=== PATIENT | male | born 1950 | race Caucasian/White ===

== ENCOUNTER 2016-08-20 06:27 | Observation (INO) | payer OTHER ==
[2016-08-13 12:15] LABS: HEMATOCRIT 43.5 % (40.0-51.0)
[2016-08-13 12:30] LABS: CHLORIDE, SERUM 104 MMOL/L (96-112); CO2 (CARBON DIOXIDE) 28 MMOL/L (24-34); CREATININE 0.89 MG/DL (0.70-1.30); GFR AFRICAN AMERICAN 102 ML/MIN (>=60); GFR NON AFRICAN AMERICAN 88 ML/MIN (>=60); POTASSIUM, SERUM 3.9 MMOL/L (3.5-5.3); SODIUM, SERUM 140 MMOL/L (135-148)
[2016-08-13 12:31] LABS: BUN (BLOOD UREA NITROGEN) 13 MG/DL (6-23); GLUCOSE, SERUM 99 MG/DL (60-99)
--- NOTE | ~2016-08-20 | PREOPHP ---
PreOp History and Physical [facility] [address] [place]. [address] NAME: MANOJ BAKER : 46 STATUS : ADM IN PAT#: [id number] AGE: 66 ADM/REG DATE : 08/20/16 MR#: [id number] REPORT SERV DATE: 08/20/16 DICTATED BY: EJ LOPEZ DATE: 08/20/16 REPORT STATUS : Draft TRANSCRIBED BY: MODL DATE: 08/20/16 CHIEF COMPLAINT: 1. Neck pain and shoulder and arm pain. 2. Gait disturbance. HISTORY OF PRESENT ILLNESS: A 66-year-old male who is still working on a daily basis with neck pain and shoulder and arm pain. He has developed significant weakness in his upper extremities. He also has some gait disturbance. The patient has had a previous cervical fusion [place] [address] Nithin Comer. The patient has developed numbness and tingling in both arms and weakness in both arms and left leg. There is pain that is associated with bowel and bladder function, but he has not lost control of bowel and bladder function. Plain x- rays reveal previous fusion of C4-5 and C5-6. He has cervical spondylosis mostly of C3-4 and C6-7. MRI shows severe cord compression at C3-4 due to a combination of some disk herniation as well as some calcification of the posterior longitudinal ligament. There is also foraminal impingement. At C6-7, there is again moderate cord impingement, but not as severe as C3-4 where the cord is just a ribbon, and there is myelomalacia within the cord at C3-4 as well as behind the top bodies of C5 and C6. The patient on exam is found to have significant weakness and is admitted for anterior cervical diskectomy at C3-4 and C6-7. A partial corpectomy of the inferior part of C3 will be required in order to safely get above the area of the disk herniation and remove it. The insurance company has indicated that they will not pay for the partial corpectomy and they do not think it is indicated, but this is absolutely incorrect and whether they pay for or not, corpectomy is necessary in order to safely perform the surgery. Finally, the patient will have interbody fusion with allograft and will have instrumentation at C3-4 and C6-7. This will be done through two separate individual incisions transverse at C3-4 and at C6-7. Prior to surgery, I have gone over in great detail of the risks, benefits, alternatives, and expectations. Consent form is signed. PAST MEDICAL HISTORY: Includes hypertension and DVTs. PAST SURGICAL HISTORY: Colonoscopy, anterior cervical diskectomy and fusion, and a knee arthroscopy. CURRENT MEDICATIONS: Include amlodipine, calcium, folic acid, hydrocodone, methotrexate, and Orencia. ALLERGIES: NONE. SOCIAL HISTORY: He is . He is still working in maintenance. Has been a smoker half a pack per day and never used alcohol. FAMILY HISTORY: Noncontributory. REVIEW OF SYSTEMS: He currently denies any chest pain, pressure, or shortness of breath. He has had no alteration of bowel and bladder function. PreOp History and Physical [place] [id number] [facility] [place]. [address] NAME: MANOJ BAKER : 46 STATUS : ADM [facility]#: [id number] AGE: 66 ADM/REG DATE : 08/20/16 MR#: [id number] REPORT SERV DATE: 08/20/16 DICTATED BY: EJ LOPEZ DATE: 08/20/16 REPORT STATUS : Draft TRANSCRIBED BY: JUAN DATE: 08/20/16 PHYSICAL EXAMINATION: GENERAL: He is 5 feet and 11 inches and 148 pounds. Alert, cooperative, well oriented. He ambulates only with assistance. His gait is certainly unstable. HEENT: Normocephalic. Pupils are equal and reactive to light. Extraocular muscles are intact. Oral exam is grossly normal. He has some dental implants that were in place. NECK: Exam reveals increased comfort with his neck flexed forward, and he can flex to 30 degrees or so. He does have pain in the neck and shoulders with extension. The pain with extension in his neck is from the top of the neck all the way to the top of the shoulders and across. When he extends his neck, he also has a significant feeling of weakness in his upper extremities. He has a positive Lhermitte's finding. Upper strength in his deltoid, biceps, triceps, wrist extensor, wrist flexors, and intrinsics is 4-/5. He has hyperreflexia in the lower extremities. He has upgoing toes with some ankle clonus. Loren sign is positive. The patient's brachioradialis and triceps reflexes 0/4 bilateral. There is some decreased stocking-glove sensation in his forearms and hands bilateral. LUNGS: Clear to auscultation. HEART: Rate is regular and rhythmic. ABDOMEN: Soft with good bowel sounds. No peritoneal signs noted. ASSESSMENT AND RECOMMENDATIONS: As listed above. /MODL Ej Lopez D.O. / [id number] CC: Adin Sandoval MD
--- NOTE | ~2016-08-20 | OP ---
Record Of Operation [facility] [address] [place]. [address] NAME: MANOJ BAKER : 46 STATUS : ADM IN PAT#: [id number] AGE: 66 ADM/REG DATE : 08/20/16 MR#: [id number] REPORT SERV DATE: 08/21/16 DICTATED BY: EJ LOPEZ DATE: 08/21/16 REPORT STATUS : Draft TRANSCRIBED BY: MODL DATE: 08/21/16 DATE OF PROCEDURE: 08/20/2016 PREOPERATIVE DIAGNOSES: 1. 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 2. Cervical spondylosis spinal stenosis, C3-4 and C6-7. POSTOPERATIVE DIAGNOSES: 1. 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 2. Cervical spondylosis spinal stenosis, C3-4 and C6-7. PROCEDURES: 1. Microscopic and navigation-assisted surgery. 2. Anterior cervical diskectomy, foraminotomy, C3-4. 3. Anterior cervical diskectomy, foraminotomy, C6-7. 4. Anterior interbody fusion with cortical cancellous allograft, C3-4 and C6-7. 5. Anterior segmental spinal instrumentation with Venture plating, C3-4 and C6-7. SURGEON: Ej Lopez D.O. SPRING TACKER: Roberto Harris. ANESTHESIA: General. BLOOD LOSS: 25 mL. INDICATIONS FOR SURGERY: Indication for surgery and risks were explained. They are listed in last office note as well as the history and physical. See that for detail. PROCEDURE IN DETAIL: Antibiotic prophylaxis was given. Neurophysiology monitoring leads inserted. The patient was brought to the operative suite. General anesthetic including endotracheal intubation was administered. The patient was placed in a supine position on fluoroscopic Magdiel spine frame. A small bolster was behind this shoulders. His neck was in neutral alignment. Preoperatively, we had the patient flex and extend his neck to demonstrate how much he could move his neck without causing any Lhermitte's phenomenon. We were careful to intubate with a GlideScope and not extend his neck. After intubation, the scalp was painted with Betadine solution. Guillen 3-point fixation attached to the skull using 60 pounds torque in standard position. The Guillen was attached to the Magdiel bed and the Screenie navigational registration frame was attached to the [place]. Because of the complexity of surgery, the need to identify correct level of surgery intraoperatively as well as desire to carry out the safest and most precise dissection, and also because I had to carry out some corpectomy in the inferior part of the body of C3, I felt that intraoperative navigation was mandatory. Isolation drapes were placed. The neck was scrubbed with Hibiclens solution. DuraPrep was painted. Sterile drapes applied. Record Of Operation [facility] [address] [place]. [address] NAME: MANOJ BAKER : 46 STATUS : ADM IN PAT#: [id number] AGE: 66 ADM/REG DATE : 08/20/16 MR#: [id number] REPORT SERV DATE: 08/21/16 DICTATED BY: EJ LOPEZ DATE: 08/21/16 REPORT STATUS : Draft TRANSCRIBED BY: JUAN DATE: 08/21/[address] scan with O-arm obtained, CT information used to register the navigational system. With navigational assistance, I identified C3-4 and C6-7. I started initially at C3-4. A transverse 2 cm Jackson-Olguin skin incision was carried out. The platysma was incised in line with the skin incision. Superficial layer of the deep cervical fascia was released along the anterior border of the sternocleidomastoid. Blunt dissection was carried out to the retropharyngeal space where the longus coli muscles were subperiosteally elevated. I re identified the correct level of surgery intraoperatively once the retractors were placed. Dunbar distractor pins were placed in the bodies of C3 and 4. With the sterilely draped microscope, I continued to map out the left and right boundary of the uncinate process with navigational assistance. I then incised the anterior longitudinal ligament. The anterior diskectomy was carried out with curettes and rongeurs. As I moved from anterior to posterior, I widened the interbody space. Because we could see on the navigational images, a large spondylotic bar posteriorly, I then carried out a partial corpectomy of the inferior body of C3, so that I was able to enter the epidural space just slightly above the spondylitic bar. I used a combination of a cutting bur, then a 3 mm and 2 mm raúl bur to carry out a corpectomy removing 10% of the inferior body of C3. I then carefully peeled the posterior longitudinal ligament and removed the spondylitic bar along with large soft disk herniation that was causing so much cord compression. I completely decompressed the cord. Foraminotomies were widened with a 2 mm raúl bur and a 1 mm Kerrison rongeur. The width, depth, and height of the disk space was measured and a wedge-shaped cortical cancellous allograft was placed in the midline. Traction was released locking the graft in good position. The wounds were irrigated. I then placed a 4-hole Venture plate over the mid body of C3 and 4, properly aligned it with navigational assistance. The four holes were drilled. The locking screws were inserted providing rigid stability. We moved distally to C6-7. Once again with navigational assistance, we identified the C6-7 level. We carried out a second transverse 2 cm skin incision. The platysma was incised in line with the skin incision and again we made the same approach to a C6-7 retropharyngeal space. Once again, Dunbar distractor pins were placed in the bodies of C6 and 7, and we carried out the same identical anterior diskectomy, wide foraminotomy, interbody fusion with allograft, and finally a placement of the Venture plate over the C6-7 level. The retractors were then removed. Both the AP and lateral x-rays taken intraoperatively showing excellent position of all implants and good baptist of disk height at the both levels. The platysmas were then closed with 3-0 Vicryl suture. Subcutaneous tissue closed with 3-0 Vicryl suture and subcuticular 4-0 PDS used for skin closure. Sterile dressings were applied. The patient awakened, extubated, and taken to recovery room in satisfactory condition having tolerated the procedure well. Sponge, needle, and instrument counts were correct. No intraoperative complications noted. Record Of Operation [facility] [address] [place]. [address] NAME: MANOJ BAKER : 46 STATUS : ADM IN PAT#: [id number] AGE: 66 ADM/REG DATE : 08/20/16 MR#: [id number] REPORT SERV DATE: 08/21/16 DICTATED BY: EJ LOPEZ DATE: 08/21/16 REPORT STATUS : Draft TRANSCRIBED BY: JUAN DATE: 08/21/16 MATTY/MODL Ej Lopez D.O. / [id number] CC: Adin Sandoval MD
[~2016-08-20 06:27] MED LIST: COREG6 PO; ENDOCET1 TA3 PO; FERROUS SULF325 M1 PO; FOLIC PO; HUMIRA PEN SC; LORTAB10 PO; LOTREL1 CA2 PO; LOTREL1 CA3 PO; LYRICA50 PO; METHOTREXATE25 MG/ML SC; NEUR100 PO; NORCO1 TAB PO; ORENCIA250 MG SQ; OS500+D PO; ULTRAM50 PO
[2016-08-21] MEDS ORDERED: NORCO1 TA2 PO (10:38)
[2016-08-21] MEDS ORDERED: METHOC500B PO (10:39)
== END 2016-08-21 12:52 | disposition home or self-care (01) ==
LOC: SDC 06:27 → 3SO 13:36
PROVIDERS: Orthopaedic Surgery Orthopaedic Surgery of the Spine
PROC: 0RB30ZZ Excision of Cervical Vertebral Disc, Open Approach (ICD-10-PCS; principal; 2016-08-20 08:15)
PROC: 0RG20K0 Fusion of 2 or more Cervical Vertebral Joints with Nonautologous Tissue Substitute, Anterior Approach, Anterior Column, Open Approach (ICD-10-PCS; 2016-08-20 08:15)
PROC: 0RG20J0 Fusion of 2 or more Cervical Vertebral Joints with Synthetic Substitute, Anterior Approach, Anterior Column, Open Approach (ICD-10-PCS; 2016-08-20 08:15)
DX: M50.01 Cervical disc disorder with myelopathy, high cervical region (principal); M48.02 Spinal stenosis, cervical region; M47.12 Other spondylosis with myelopathy, cervical region; G95.20 Unspecified cord compression; F17.210 Nicotine dependence, cigarettes, uncomplicated; M06.9 Rheumatoid arthritis, unspecified; D64.9 Anemia, unspecified; I10 Essential (primary) hypertension; Z86.718 Personal history of other venous thrombosis and embolism; Z98.1 Arthrodesis status; Z98.890 Other specified postprocedural states; Z79.899 Other long term (current) drug therapy
CPT/HCPCS: 80048; 82962; 85014; 85018; 87641; 88304; 88311; 93005; 96374; 96375; 96376; A9270-GY; C1713; C1768; G0378; J0690; J2250; J2270; J2405; J2710; J3010